=== PATIENT | female | born 1965 | race Hispanic/Latino ===

== ENCOUNTER 2019-08-16 22:05 | Emergency (ER) | payer OTHER ==
[~2019-08-16] VITALS: Ht 165.1 cm; Wt 77.6 kg
[2019-08-16] MEDS ORDERED: HYDROCODONE/APAP 10MG-325MG TAB ONE (22:52)
[2019-08-16] MEDS ORDERED: HYDROCODONE/APAP 10MG-325MG TAB PO ONE (23:00)
== END 2019-08-16 23:50 | disposition home or self-care (01) ==
LOC: ER 22:05
DX: K08.89 Other specified disorders of teeth and supporting structures (principal); K05.219 Aggressive periodontitis, localized, unspecified severity
CPT/HCPCS: 99282